=== PATIENT | female | born 1950 | race Caucasian/White ===

== ENCOUNTER 2019-10-23 04:24 | Inpatient (IN) | payer OTHER, MEDICARE ==
[~2019-10-23] VITALS: Ht 167.6 cm; Wt 78.9 kg
--- NOTE | ~2019-10-23 | PROC ---
[address] [address] PROCEDURE REPORT Name: ENID BAXTER Room: [address] IN .R.#: [id number] Admission: 10/23/19 Attend Phys: Sherly Valenzuela MD Discharge: Date of : 50 Report #: [id number] THIS REPORT FOR: //name// cc: Javier Gutierrez MD, Tuongvan T. MD ~ THIS REPORT FOR: //name// For GI report, please see the Provation report in Perceptive 7 content. By: 0706Medical Records Staff AIXA /CARSON
[2019-10-23 04:37] VITALS: BP 150/74
[2019-10-23] MEDS ORDERED: OMEPRAZOLE40 MG PO (04:45)
[2019-10-23] MEDS ORDERED: COZAAR 25 MG TA25 M2 PO (04:45)
[2019-10-23] MEDS ORDERED: FARXIGA10 MG PO (04:46)
[2019-10-23] MEDS ORDERED: NORVASC 2.5 MG2.5 M1 PO (04:46)
[2019-10-23] MEDS ORDERED: LIPITOR 20 MG T20 M1 PO (04:47)
[2019-10-23] MEDS ORDERED: GRALISE600 MG PO (04:47)
[2019-10-23] MEDS ORDERED: TRAMADOL 50 MG50 MG PO (04:48)
[2019-10-23 04:58] LABS: URINE BILIRUBIN NEGATIVE (Negative); URINE BLOOD NEGATIVE (Negative); URINE CLARITY CLEAR; URINE COLOR YELLOW; URINE GLUCOSE-RANDOM 3+ (Negative); URINE KETONES NEGATIVE (Negative); URINE LEUKOCYTES-REFLEX NEGATIVE (Negative); URINE NITRITE-REFLEX NEGATIVE (Negative); URINE PROTEIN NEGATIVE (Negative); URINE UROBILINOGEN 0.2 E.U./dl (0.2-1.0)
[2019-10-23 05:09] LABS: ABSOLUTE BASOPHILS 0.1 thou/uL (0.0-0.2); ABSOLUTE EOSINOPHILS 0.1 thou/uL (0.0-0.7); ABSOLUTE LYMPHOCYTES 1.8 thou/uL (0.8-5.3); ABSOLUTE MONOCYTES 1.4 thou/uL (0.0-1.2); ABSOLUTE NEUTROPHILS 15.1 thou/uL (1.6-8.1); BASOPHILS 0.5 %; EOSINOPHILS 0.5 %; HEMATOCRIT 43.8 % (37.0-47.0); HEMOGLOBIN 15.2 gm/dL (12.0-15.0); LYMPHOCYTES 9.6 %; MCHC 34.7 g/dL (28.0-37.0); MCV 91.9 fL (80.0-100.0); MONOCYTES 7.4 %; MPV 8.4 fl. (7.2-11.1); NUCLEATED RBCS 0 /100WBC; PLATELET COUNT* 232 thou/uL (150-400); RBC 4.76 mil/uL (4.20-5.00); WBC 18.5 thou/uL (4.0-11.0)
[2019-10-23 05:16] LABS: CALCIUM 8.8 mg/dL (8.5-10.1); POTASSIUM 3.9 mmol/L (3.5-5.1)
[2019-10-23 05:18] LABS: PROTIME 10.5 Seconds (9.20-11.50)
[2019-10-23 05:21] LABS: ALBUMIN 3.9 g/dL (3.4-5.0); TOTAL BILIRUBIN 0.7 mg/dL (<0.1-1.0); TOTAL PROTEIN 7.4 g/dL (6.4-8.2)
[2019-10-23] MEDS ORDERED: TRULICITY0.75 MG/0. SUBQ (05:27)
[2019-10-23 10:30] VITALS: BP 160/80
[2019-10-23 12:00] VITALS: BP 146/76
[2019-10-23 19:40] VITALS: BP 132/61
[2019-10-24 06:15] LABS: HEMATOCRIT 39.4 % (37.0-47.0); MCH 31.1 pg (26.0-34.0); MCHC 33.6 g/dL (28.0-37.0); MCV 92.8 fL (80.0-100.0); MPV 8.2 fl. (7.2-11.1); RBC 4.25 mil/uL (4.20-5.00); RDW-CV 13.1 % (10.5-14.5); WBC 15.7 thou/uL (4.0-11.0)
[2019-10-24 06:27] LABS: ALBUMIN 3.1 g/dL (3.4-5.0); CALCIUM 8.2 mg/dL (8.5-10.1); CREATININE 0.8 mg/dL (0.6-1.3); MAGNESIUM 1.8 mg/dL (1.8-2.4); POTASSIUM 3.6 mmol/L (3.5-5.1); TOTAL BILIRUBIN 0.7 mg/dL (<0.1-1.0); TOTAL PROTEIN 6.8 g/dL (6.4-8.2)
[2019-10-24 06:30] LABS: HEMOGLOBIN 13.2 gm/dL (12.0-15.0)
[2019-10-24 15:54] VITALS: BP 129/67
[2019-10-24 19:45] VITALS: BP 117/50
[2019-10-25 06:42] LABS: HEMATOCRIT 36.5 % (37.0-47.0); HEMOGLOBIN 12.4 gm/dL (12.0-15.0); MCH 31.4 pg (26.0-34.0); MCV 92.4 fL (80.0-100.0); MPV 8.3 fl. (7.2-11.1); RBC 3.95 mil/uL (4.20-5.00); RDW-CV 13.1 % (10.5-14.5); WBC 13.1 thou/uL (4.0-11.0)
[2019-10-25 06:53] LABS: ALBUMIN 2.7 g/dL (3.4-5.0); CALCIUM 7.5 mg/dL (8.5-10.1); CREATININE 0.9 mg/dL (0.6-1.3); MAGNESIUM 1.8 mg/dL (1.8-2.4); POTASSIUM 3.2 mmol/L (3.5-5.1); TOTAL BILIRUBIN 0.3 mg/dL (<0.1-1.0); TOTAL PROTEIN 5.7 g/dL (6.4-8.2)
[2019-10-25 20:00] VITALS: BP 172/85
[2019-10-26 05:48] LABS: ABSOLUTE EOSINOPHILS 0.2 thou/uL (0.0-0.7); ABSOLUTE LYMPHOCYTES 1.8 thou/uL (0.8-5.3); ABSOLUTE MONOCYTES 0.7 thou/uL (0.0-1.2); ABSOLUTE NEUTROPHILS 6.5 thou/uL (1.6-8.1); BASOPHILS 0.5 %; EOSINOPHILS 2.7 %; HEMATOCRIT 37.7 % (37.0-47.0); LYMPHOCYTES 19.4 %; MCHC 34.5 g/dL (28.0-37.0); MCV 92.8 fL (80.0-100.0); MONOCYTES 7.8 %; MPV 8.3 fl. (7.2-11.1); NUCLEATED RBCS 0 /100WBC; PLATELET COUNT* 166 thou/uL (150-400); POLYS 69.6 %; RBC 4.06 mil/uL (4.20-5.00); RDW-CV 12.9 % (10.5-14.5); WBC 9.3 thou/uL (4.0-11.0)
[2019-10-26 06:06] LABS: CALCIUM 8.1 mg/dL (8.5-10.1); CREATININE 0.9 mg/dL (0.6-1.3); MAGNESIUM 1.8 mg/dL (1.8-2.4); POTASSIUM 3.6 mmol/L (3.5-5.1); TOTAL BILIRUBIN 0.3 mg/dL (<0.1-1.0); TOTAL PROTEIN 6.2 g/dL (6.4-8.2)
[2019-10-26 08:21] VITALS: BP 160/88
--- NOTE | 2019-10-26 15:15 | EKG ---
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
[2019-10-26 16:29] VITALS: BP 182/80
[2019-10-26 19:40] VITALS: BP 143/67
[2019-10-27 07:38] VITALS: BP 140/56
[2019-10-27] MEDS ORDERED: FLAGYL500 M1 PO (11:01)
[2019-10-27] MEDS ORDERED: NEURONTIN 300M300 M2 PO (11:01)
[2019-10-27] MEDS ORDERED: CIPRO500 MG PO (11:01)
[2019-10-27] MEDS ORDERED: BANOPHEN25 MG PO (11:01)
[2019-10-27 11:58] VITALS: BP 140/56
--- NOTE | 2019-10-29 17:36 | CON ---
[address] [address] CONSULTATION Name: ENID BAXTER Room: [address] IN .R.#: [id number] Admission: 10/23/19 Attend Phys: Sherly Valenzuela MD Discharge: 10/27/19 Date of : 50 Report #: [id number] THIS REPORT FOR: //name// cc: Javier Gutierrez MD, Tuongvan T. MD ~ THIS REPORT FOR: //name// CC: Sherly Gutierrez MD DICTATED BY: Nitza Rojas [facility] DATE OF SERVICE: 10/23/2019 Please note at the time of this dictation, the patient was seen and physically examined by myself. REASON FOR CONSULTATION: Abdominal pain and blood in stool with diarrhea. HISTORY OF PRESENT ILLNESS: This is a 68-year-old female who states she has a longstanding history of constipation that normally she has to almost disimpact herself on a daily basis to facilitate a bowel movement. She states she does not take anything. She has tried several things in the past, she cannot recall what she has taken, but none of them have seemed to have worked. The patient states over the last 24 hours, she has had increased abdominal pain that started yesterday about 2:00 that was increasing bloody stools. She said it was davon bright red blood along with abdominal cramping and diarrhea. The patient states she was very nauseated, but no vomiting. She denied any fever or chills. She states that she does have long-term issues with GERD in which she has taken omeprazole for 20+ years. She states she did not feel like it is working anymore. She only takes it as needed when it is really bad. She states that she had an EGD and colonoscopy back in [place] many years ago and she does not recall the findings of either of them except that she had GERD and a hiatal hernia. She does not recall the facility in which she had it done at. ALLERGIES: CODEINE. MEDICATIONS: From home include Trulicity, Ultram, Lipitor, gabapentin, Norvasc, Farxiga, omeprazole, and losartan. PAST MEDICAL HISTORY: Diabetes, hypertension, high cholesterol, and acid reflux. PAST SURGICAL HISTORY: She has a torn ligament [place] [address] CONSULTATION Name: SAHILENID S Room: [address]#: [id number] Admission: 10/23/19 Attend Phys: Sherly Valenzuela MD Discharge: 10/27/19 Date of : 50 Report #: [id number] FAMILY HISTORY: Mother, colon cancer. SOCIAL HISTORY: Denies tobacco use, alcohol once a month. Socially, denies any illegal drug use. REVIEW OF SYSTEMS: Twelve-point review of systems is essentially negative except what is mentioned in the HPI. PHYSICAL EXAMINATION: VITAL SIGNS: Temperature 36.4, pulse 73, respirations 16, and blood pressure 160/80. HEART: Regular rate and rhythm. LUNGS: Clear. ABDOMEN: Soft, positive bowel sounds in all 4 quadrants with some left lower quadrant tenderness noted to palpation. LABORATORY DATA: Hemoglobin is 15.2, white count on admission was 18.5, has not been rechecked again, and platelets 232. PT 10.5 and INR 1. LFTs are completely normal. Her GFR 55 and her COVID testing was negative. CT of the abdomen and pelvis shows left wall thickening that is very extensive. IMPRESSION: 1. Abdominal pain. 2. Hematochezia. 3. Gastroesophageal reflux disease. 4. Constipation. 5. Leukocytosis. 6. Family history of colon cancer in mother. PLAN: 1. EGD and colonoscopy tomorrow at [address] Pete. 2. Continue her Cipro and Flagyl. 3. Clear liquids today. 4. Further recommendations to be made once the procedure has been performed. Thank you for allowing us to participate in this patient's care. Please do not hesitate to call with any questions in regard to this consult. <ELECTRONICALLY SIGNED> By: Rhett Pete DO 10/29/19 1736 1147 [id number] Pete DO /nt
--- NOTE | 2019-10-30 10:41 | PATH ---
[facility] [address] [place] [address] PATHOLOGY RPT PROCEDURE Name: ENID DUMAS Room: [address] IN M.R.#: [id number] Admission: 10/23/19 Date of : 50 Discharge: 10/27/19 Report #: [id number] Path Case #: [id number] [facility] Accession Number: [id number] . 01 Material submitted: . PART A: esophagus - ESOPHAGEAL BIOPSY 30CM PART B: colon - BIOPSY OF DESCENDING COLON SUSPECTING ISCHEMIC COLITIS. Modifiers: descending . 01 Clinical history: . A. For esophagitis B. Suspecting ischemic colitis . 02 Diagnosis: A. Esophageal biopsy 30 cm: - Moderate chronic and active esophagitis typical of reflux, negative for granulomas and dysplasia. . B. Biopsy of descending colon: - Severe active colitis with ulceration typical of ischemic colitis, negative for granulomas and dysplasia. See comment. . (FARRAH:anival; 10/27/2019) MBR 10/27/2019 1306 Local . 02 Comment: B. The descending colon biopsies (B) show benign colonic mucosa with extensive acute inflammation and ulceration and preservation of crypts at the deepest aspects where the more superficial portions are atrophic and/or eroded and where the lamina propria shows condensation. The preserved mucosa shows no significant basal lymphoplasmacytosis or crypt distortion to raise a suspicion of inflammatory bowel disease. (FARRAH:anival; 10/27/2019) . 02 Electronically signed: . Noman Coleman MD, Pathologist NPI- [id number] . 01 Gross description: . A. The specimen is received in formalin, labeled "Enid Dumas, esophageal biopsy 30 cm" and consists of 2 fragments of pink-chavira tissue measuring 0.2 x 0.2 cm and 0.6 x 0.3 cm which are entirely submitted in A1. . B. The specimen is received in formalin, labeled "Enid Dumas, biopsy of descending colon" and consists of multiple fragments of victor-brown tissue measuring 1.0 x 0.4 x 0.2 cm in aggregate which are entirely [place] [address] PATHOLOGY RPT PROCEDURE Name: ENID DUMAS Room: [address] IN M.R.#: [id number] Admission: 10/23/19 Date of : 50 Discharge: 10/27/19 Report #: [id number] Path Case #: [id number] (SDY; 10/26/2019) SYU/SYU 10/26/2019 1522 Local . 02 Pathologist provided ICD-10: K20.9, K52.9 . 02 CPT . 378346, [id number] Specimen Comment: A courtesy copy of this report has been sent to [phone] Specimen Comment: Report sent to Specimen Comment: A duplicate report has been generated due to demographic updates. Performed at: 01 [facility] [address] [facility] [address], [place], [place] [id number] MD Flakito Fay MD Phone: [phone] Performed at: 02 [facility] [address], [place], [place] [id number] MD Noman Coleman MD Phone: [phone]
== END 2019-10-27 13:00 | disposition home or self-care (01) | DRG 394 ==
LOC: M.ERS 04:24 → M.TBA-ER 07:53 → M.ORTHSURG 07:53
PROVIDERS: Emergency Medicine; ADMIT Internal Medicine; ATTEND Internal Medicine
PROC: 0DB58ZX Excision of Esophagus, Via Natural or Artificial Opening Endoscopic, Diagnostic (ICD-10-PCS; principal; 2019-10-24)
PROC: 0DBM8ZX Excision of Descending Colon, Via Natural or Artificial Opening Endoscopic, Diagnostic (ICD-10-PCS; principal; 2019-10-24)
PROC: 0DBL8ZX Excision of Transverse Colon, Via Natural or Artificial Opening Endoscopic, Diagnostic (ICD-10-PCS; principal; 2019-10-24)
DX: K55.039 Acute (reversible) ischemia of large intestine, extent unspecified (principal); R65.10 Systemic inflammatory response syndrome (SIRS) of non-infectious origin without acute organ dysfunction; E44.0 Moderate protein-calorie malnutrition; K92.1 Melena; K57.30 Diverticulosis of large intestine without perforation or abscess without bleeding; K55.1 Chronic vascular disorders of intestine; E11.9 Type 2 diabetes mellitus without complications; K59.00 Constipation, unspecified; E78.5 Hyperlipidemia, unspecified; K21.0 Gastro-esophageal reflux disease with esophagitis; K44.9 Diaphragmatic hernia without obstruction or gangrene; K64.4 Residual hemorrhoidal skin tags; Z20.828 Contact with and (suspected) exposure to other viral communicable diseases; I10 Essential (primary) hypertension; E78.00 Pure hypercholesterolemia, unspecified; Z79.899 Other long term (current) drug therapy; Z88.6 Allergy status to analgesic agent; Z80.0 Family history of malignant neoplasm of digestive organs; Z68.28 Body mass index [BMI] 28.0-28.9, adult

== ENCOUNTER 2020-08-09 10:23 | Emergency (ER) | payer OTHER, MEDICARE ==
[~2020-08-09] VITALS: Ht 167.6 cm; Wt 79.4 kg
[~2020-08-09 10:23] MED LIST: BANOPHEN25 MG PO; CIPRO500 MG PO; COZAAR 25 MG TA25 M2 PO; FARXIGA10 MG PO; FLAGYL500 M1 PO; GRALISE600 MG PO; LIPITOR 20 MG T20 M1 PO; NEURONTIN 300M300 M2 PO; NORVASC 2.5 MG2.5 M1 PO; OMEPRAZOLE40 MG PO; TRAMADOL 50 MG50 MG PO; TRULICITY0.75 MG/0. SUBQ
[2020-08-09] MEDS ORDERED: TRESIBA100 UNIT/1 SQ (10:38)
[2020-08-09 11:13] LABS: ABSOLUTE BASOPHILS 0.1 thou/uL (0.0-0.2); ABSOLUTE EOSINOPHILS 0.2 thou/uL (0.0-0.7); ABSOLUTE LYMPHOCYTES 2.6 thou/uL (0.8-5.3); ABSOLUTE MONOCYTES 0.9 thou/uL (0.0-1.2); BASOPHILS 0.7 %; EOSINOPHILS 1.4 %; HEMATOCRIT 47.8 % (37.0-47.0); LYMPHOCYTES 18.9 %; MCH 30.9 pg (26.0-34.0); MCHC 33.5 g/dL (28.0-37.0); MCV 92.4 fL (80.0-100.0); MONOCYTES 6.3 %; MPV 8.2 fl. (7.2-11.1); NUCLEATED RBCS 0 /100WBC; PLATELET COUNT* 247 thou/uL (150-400); POLYS 72.7 %; RBC 5.18 mil/uL (4.20-5.00); RDW-CV 13.5 % (10.5-14.5); WBC 13.7 thou/uL (4.0-11.0)
[2020-08-09 11:21] LABS: CALCIUM 9.2 mg/dL (8.5-10.1); POTASSIUM 4.2 mmol/L (3.5-5.1)
[2020-08-09 11:25] LABS: ALBUMIN 4.1 g/dL (3.4-5.0); TOTAL BILIRUBIN 0.6 mg/dL (<0.1-1.0); TOTAL PROTEIN 8.1 g/dL (6.4-8.2)
[2020-08-09 13:07] LABS: URINE BILIRUBIN NEGATIVE (Negative); URINE BLOOD NEGATIVE (Negative); URINE CLARITY CLEAR; URINE COLOR YELLOW; URINE GLUCOSE-RANDOM 3+ (Negative); URINE KETONES NEGATIVE (Negative); URINE LEUKOCYTES-REFLEX NEGATIVE (Negative); URINE NITRITE-REFLEX NEGATIVE (Negative); URINE PROTEIN NEGATIVE (Negative); URINE SPECIFIC GRAVITY <= 1.005 (1.005-1.030); URINE UROBILINOGEN 0.2 E.U./dl (0.2-1.0)
[2020-08-09] MEDS ORDERED: CIPRO500 M1 PO (14:33)
[2020-08-09] MEDS ORDERED: ZOFRAN ODT4 MG PO (14:33)
[2020-08-09] MEDS ORDERED: LOMOTIL TABLET1 EACH PO (14:33)
[2020-08-09 14:49] VITALS: BP 155/82
--- NOTE | 2020-08-09 16:13 | EKG ---
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1950 Requested By: Yue Saldivar Order Number: [id number] MD: Aramis Guerrero Measurements Intervals [place] Rate: 82 P: 40 VT: 176 QRS: -25 QRSD: 91 T: 45 QT: 386 QTc: 451 Interpretive Statements Sinus rhythm Borderline left axis deviation Abnormal R-wave progression, late transition Baseline wander in lead(s) II,III,aVF Compared to ECG 10/24/2019 09:16:00 No significant changes Electronically Signed On 08-09-2020 16:13:05 CDT by Aramis Guerrero [email or web address] <ELECTRONICALLY SIGNED> By: Aramis Guerrero MD, [facility] 08/09/20 1613 1045 1045 Aramis Guerrero MD, [facility] /EPI
== END 2020-08-09 14:49 | disposition home or self-care (01) ==
LOC: M.ERS 10:23
PROVIDERS: Nurse Practitioner Family
DX: K76.0 Fatty (change of) liver, not elsewhere classified (principal); Z20.822 Contact with and (suspected) exposure to COVID-19; D25.9 Leiomyoma of uterus, unspecified; R19.7 Diarrhea, unspecified; R11.2 Nausea with vomiting, unspecified; E11.9 Type 2 diabetes mellitus without complications; I10 Essential (primary) hypertension; E78.00 Pure hypercholesterolemia, unspecified; K21.9 Gastro-esophageal reflux disease without esophagitis; Z88.5 Allergy status to narcotic agent